=== PATIENT | female | born 1990 | race Caucasian/White ===

== ENCOUNTER 2019-06-09 06:13 | Emergency (ER) | payer SELFPAY ==
[~2019-06-09] VITALS: Ht 149.9 cm; Wt 68.9 kg
[~2019-06-09 06:13] MED LIST: FAMO-96 PO; MAG-19 PO
[2019-06-09 06:15] VITALS: BP 119/71; PULSE 89; RESP 16; Ht 149.9 cm; Wt 68.9 kg
[2019-06-09] MEDS ORDERED: BELLADONNA/PHENOBARBITAL TAB PO STA (06:35)
[2019-06-09] MEDS ORDERED: LIDOCAINE/MYLANTA 40 ML BTL PO STA (06:35)
== END 2019-06-09 07:24 | disposition home or self-care (01) ==
LOC: FTE 06:13
DX: R10.9 Unspecified abdominal pain (principal)
CPT/HCPCS: 81025; 99283